=== PATIENT | male | born 1940 | race Caucasian/White ===

== ENCOUNTER → 2018-12-25 | Outpatient (REF) | payer MEDICARE, OTHER ==
[~2018-12-25] MED LIST: LEVOTHROID125 MCG PO; PRILOSEC20 MG OR
[2018-12-25 07:25] LABS: IMMATURE GRANULOCYTES 0.6 % (0.0-5.0); MEAN CELL VOLUME 94.6 fL CALC (80.0-100.0); MEAN CORPUSCULAR HGB 31.7 pG CALC (26.0-32.0); MEAN CORPUSCULAR HGB CONC 33.5 g/L CALC (32.0-36.0); NEUT# 3.4 thou/uL (1.82-7.42); RED BLOOD COUNT 4.42 mill/uL (4.70-6.10); RED CELL DISTRI WIDTH 12.6 % (11.5-15.5)
[2018-12-25 07:35] LABS: HEMATOCRIT 41.8 % (39.0-50.0)
[2018-12-25 07:47] LABS: ALBUMIN 4.2 g/dL (3.2-5.0); ALKALINE PHOSPHATASE 63 u/l (38-126); ANION GAP 13 (6-22 (CALC)); BILIRUBIN, TOTAL 0.7 mg/dL (0.0-1.4); BUN 28 mg/dL (8-23); BUN/CREATININE RATIO 23 (12-20 (CALC)); CALCULATED LDLCHOLESTEROL 147 mg/dL (62-129 (CALC)); CARBON DIOXIDE 27 mmol/l (22-30); CHLORIDE 104 mmol/l (95-108); CHOLESTEROL HDL RATIO 4.2 (<4.4 (CALC)); CREATININE 1.2 mg/dL (0.7-1.3); GFR 59 ML/MIN (>=60 (CALC)); GFR FOR AFR.AMER. > 60 ML/MIN (>=60 (CALC)); HDL CHOLESTEROL 55 mg/dL (>=40); POTASSIUM 4.6 mmol/l (3.5-5.1); SGOT/AST 33 u/l (19-48); SODIUM 140 mmol/l (137-146); TOTAL CHOLESTEROL 227 mg/dl (0-199); TOTAL PROTEIN 7.1 g/dL (6.3-8.2); TOTAL TRIGLYCERIDES 128 mg/dl (30-149); VLDL CHOLESTROL 26 mg/dl (0-38 (CALC))
[2018-12-25 08:18] LABS: TSH, 3RD GENERATION 0.53 uIU/mL (0.47 - 4.68)
== END | disposition home or self-care (01) ==
LOC: LAB 07:03
PROVIDERS: ATTEND Internal Medicine
DX: E29.1 Testicular hypofunction (principal); E78.49 Other hyperlipidemia

== ENCOUNTER 2021-12-12 21:45 | Emergency (ER) | payer MEDICARE, OTHER ==
[~2021-12-12] VITALS: Ht 182.9 cm; Wt 95.0 kg
[2021-12-12] MEDS ORDERED: LOSARTAN POTASS25 MG PO (22:09)
[2021-12-12] MEDS ORDERED: BENAZEPRIL10 M1 PO (22:11)
[2021-12-12] MEDS ORDERED: HYDROCHLOROT XX (22:11)
[2021-12-12 23:00] VITALS: BP 170/65
== END 2021-12-12 23:00 | disposition home or self-care (01) ==
LOC: ED 21:45
PROC: 0HQAXZZ Repair Inguinal Skin, External Approach (ICD-10-PCS; principal; 2021-12-12)
DX: S30.813A Abrasion of scrotum and testes, initial encounter (principal); I10 Essential (primary) hypertension; E03.9 Hypothyroidism, unspecified; W27.2XXA Contact with scissors, initial encounter; Y93.E8 Activity, other personal hygiene; Y92.009 Unspecified place in unspecified non-institutional (private) residence as the place of occurrence of the external cause

== ENCOUNTER 2023-05-03 14:39 | Emergency (ER) | payer MEDICARE, OTHER ==
[~2023-05-03] VITALS: Ht 182.9 cm; Wt 94.9 kg
[~2023-05-03 14:39] MED LIST changes: +BENAZEPRIL10 M1 PO; +HYDROCHLOROT XX; +LOSARTAN POTASS25 MG PO
[2023-05-03 15:18] LABS: BASO% 0.4 % (0-3); EOS% 0.9 % (0-8); HEMATOCRIT 48.6 % (39.0-50.0); HEMOGLOBIN 15.4 g/dl (14.0-18.0); IMMATURE GRANULOCYTES 0.1 % (0.0-5.0); LYMPH% 15.5 % (15-41); MEAN CELL VOLUME 92.9 fL CALC (80.0-100.0); MEAN CORPUSCULAR HGB 29.4 pG CALC (26.0-32.0); MEAN CORPUSCULAR HGB CONC 31.7 g/dL CAL (32.0-36.0); MONO% 5.1 % (2-13); NEUT# 7.63 thou/uL (1.82-7.42); RED BLOOD COUNT 5.23 mill/uL (4.70-6.10); RED CELL DISTRI WIDTH 14.7 % (11.5-15.5)
[2023-05-03 15:29] LABS: INTERNATIONAL NORMALIZED RATIO 1.1 RATIO (0.7-1.3); PROTHROMBIN TIME 10.9 SECONDS (9.0-12.5)
[2023-05-03 15:31] LABS: ALBUMIN 4.1 g/dL (3.2-5.0); BILIRUBIN, TOTAL 0.5 mg/dL (0.2-1.3); CREATININE 1.9 mg/dL (0.7-1.3); POTASSIUM 4.6 mmol/l (3.5-5.1)
[2023-05-03 17:53] LABS: URINE BILIRUBIN - DIPSTICK NEGATIVE (NEGATIVE); URINE BLOOD DIPSTICK NEGATIVE (NEGATIVE); URINE COLOR YELLOW; URINE GLUCOSE - DIPSTICK NEGATIVE (NEGATIVE); URINE KETONE TRACE mg/dL (NEGATIVE); URINE LEUK ESTERASE NEGATIVE (NEGATIVE); URINE PH 5.5 (4.5-8.0); URINE PROTEIN - DIPSTICK 100 mg/dL (NEG-TRACE); URINE SPECIFIC GRAVITY >=1.030; URINE UROBILINOGEN - DIPSTICK 0.2 E.U./dL (0.2)
[2023-05-03 18:01] LABS: URINE NITRITE - DIPSTICK NEGATIVE (Negative)
[2023-05-03 18:09] VITALS: BP 151/55
[2023-05-03 18:10] LABS: URINE RBC 0-2 RBC/hpf (0-5); URINE WBC 0-2 WBC/hpf (0-5)
== END 2023-05-03 18:12 | disposition short-term general hospital (02) ==
LOC: ED 14:39
PROVIDERS: Family Medicine
DX: R55 Syncope and collapse (principal); I44.30 Unspecified atrioventricular block; I10 Essential (primary) hypertension; E03.9 Hypothyroidism, unspecified